=== PATIENT | male | born 1955 | race Caucasian/White ===

== ENCOUNTER 2022-07-31 16:30 | Inpatient (IN) | payer MEDICARE ==
[~2022-07-31] VITALS: Ht 172.7 cm; Wt 72.6 kg
--- NOTE | 2022-07-31 16:52 | NUR ---
[email or web address], medical screening exam in progress
[2022-07-31] MEDS ORDERED: ACETAMINOPHEN ES 500 MG TABLET PO ONE (17:00)
[2022-07-31] MEDS ORDERED: ASPIRIN 81 MG TAB.CHEW PO ONE (17:00)
[2022-07-31] MEDS ORDERED: ASPIRIN 81 MG TAB.CHEW ONE (17:03)
[2022-07-31] MEDS ORDERED: ACETAMINOPHEN 325 MG TABLET ONE (17:03)
[2022-07-31 17:06] LABS: HEMATOCRIT 45.2 % (36.7-47.1); MEAN CORPUSCULAR HEMOGLOBIN 27.4 uug (23.8-33.4); MEAN CORPUSCULAR VOLUME 82.6 fL (73.0-96.2); PLATELET COUNT (AUTO) 269 K/uL (152-348)
[2022-07-31 17:10] LABS: CARBON DIOXIDE 26 mmol/L (21-32); CHLORIDE 106 mmol/L (98-107); CREATININE 1.2 mg/dL (0.6-1.3); GLUCOSE 104 mg/dL (74-106); POTASSIUM 3.7 mmol/L (3.5-5.1); UREA NITROGEN, BLOOD 23 mg/dL (7-18)
[2022-07-31 17:23] LABS: ALANINE AMINOTRANSFERASE 26 U/L (16-63); ALKALINE PHOSPHATASE 110 U/L (50-136); ASPARTATE AMINOTRANSFERASE 15 U/L (15-37); BILIRUBIN,DIRECT < 0.1 mg/dL (0.0-0.2); BILIRUBIN,TOTAL 0.4 mg/dL (0.2-1.0); TOTAL PROTEIN, SERUM 6.8 g/dL (6.4-8.2)
[2022-07-31 17:24] LABS: THYROID STIMULATING HORMONE 0.159 mIU/mL (0.358-3.740)
[2022-07-31] MEDS ORDERED: METOPROLOL TARTRATE 50 MG TABLET PO SCH (18:00)
[2022-07-31] MEDS ORDERED: METOPROLOL TARTRATE 50 MG TABLET ONE (18:04)
--- NOTE | 2022-07-31 18:16 | NUR ---
"Plan to admit" per Dr Zee. ER registration/admitting staff Blake notified.
--- NOTE | 2022-07-31 18:29 | NUR ---
NPO except meds with sips of water for now per Dr Zee. Patient notified.
[2022-07-31] MEDS ORDERED: REMEDY ESSENTIAL ZINC PASTE 113 GM TP PRN (18:30)
[2022-07-31] MEDS ORDERED: MORPHINE SULFATE 2 MG/1 ML DISP.SYRIN IV PRN (18:30)
[2022-07-31] MEDS ORDERED: ONDANSETRON 4 MG/2 ML VIAL IV PRN (18:30)
[2022-07-31] MEDS ORDERED: MAGNESIUM HYDROXIDE 30 ML LIQUID UDC PO PRN (18:30)
[2022-07-31] MEDS ORDERED: ACETAMINOPHEN 325 MG TABLET PO PRN (18:30)
[2022-07-31] MEDS ORDERED: NITROGLYCERIN 0.4 MG/TAB BOTTLE SL PRN (18:30)
--- NOTE | 2022-07-31 18:41 | NUR ---
Pending telemetry bed & nurse at this time, 3rd floor air tester notified.
[2022-07-31] MEDS ORDERED: IV NS 1000 ML 1,000 ML IV ONE (18:45)
--- NOTE | 2022-07-31 18:57 | NUR ---
Pt will be assigned to 318 per [facility]. Charge nurse made aware.
--- NOTE | 2022-07-31 19:31 | NUR ---
Patient awake and oriented x 4, no voiced c/o pain or discomfor at this time. Patient updated on plan of care, aware will be admitted to the hospital, going to room # 318, COVID swab done at this time awaiting results. Report called to accepting nurse Ran. Patient remains stable for transport.
[2022-07-31] MEDS ORDERED: ATORVASTATIN 40 MG TABLET PO SCH ×2 (21:00)
[2022-07-31] MEDS ORDERED: ENOXAPARIN SODIUM 40 MG/0.4 ML DISP.SYRIN SQ SCH (21:00)
--- NOTE | 2022-07-31 22:00 | NUR ---
Received Pt from SHAZIA Matthews. Pt arrived in unit on 2134. Pt is A&Ox4 and is cooperative. Pt is Sinus Shailesh on tele. Pt on Rm Air. Pt not experiencing any chest pain. No other S&S of distress. Skin is intact. Safety measures in place. Will continue to monitor.
[2022-07-31 22:30] VITALS: BP 115/48
--- NOTE | 2022-07-31 23:00 | NUR ---
Informed Dr. Guzman of Pt usually taking lithium carbonate 300mg PO HS instead of prescribed 450mg PO B.I.D. Thomas stated it was ok to change lithium order to 300mg PO HS. Safety measures in place. Will continue to monitor.
[2022-07-31] MEDS ORDERED: LITHIUM CARBONATE 300 MG TABLET.SA PO SCH (23:30)
[2022-08-01] MEDS: LITHIUM CARBONATE 300 MG CAPSULE PO SCH ×2 (00:22→00:25)
[2022-08-01] MEDS ORDERED: LITHIUM CARBONATE CR 450 MG TABLET.SA PO SCH ×2 (00:30→09:00)
[2022-08-01] MEDS ORDERED: LITHIUM CARBONATE 300 MG CAPSULE PO SCH (00:45)
[2022-08-01 04:00] VITALS: BP 114/54
--- NOTE | 2022-08-01 05:15 | NUR ---
Pt has CT Angio ordered by Dr. Guzman yesterday at 1817 STAT. Pt has yet to get the CT angio. Asked Radiology Department at approximately 0230. Roland stated that it "will occur in the morning." Contacted cotton seed culler physician Asim Ruth @[phone] on 08/01. Dr. Ruth replied at [phone] to contact radiology again. Will follow up on recommendation. Safety measures in place. Will continue to monitor.
--- NOTE | 2022-08-01 05:21 | NUR ---
Will endorse CT Angio situation to Day shift Nurse.
[2022-08-01 05:39] LABS: HEMATOCRIT 42.3 % (36.7-47.1); MEAN CORPUSCULAR HEMOGLOBIN 27.7 uug (23.8-33.4); MEAN CORPUSCULAR VOLUME 83.3 fL (73.0-96.2); PLATELET COUNT (AUTO) 229 K/uL (152-348)
[2022-08-01 05:55] LABS: ALANINE AMINOTRANSFERASE 23 U/L (16-63); ALKALINE PHOSPHATASE 93 U/L (50-136); ASPARTATE AMINOTRANSFERASE 15 U/L (15-37); BILIRUBIN,TOTAL 0.2 mg/dL (0.2-1.0); CHOLESTEROL 190 mg/dL (<200); HDL CHOLESTEROL 44 mg/dL (40-60); TOTAL PROTEIN, SERUM 5.6 g/dL (6.4-8.2); TRIGLYCERIDES 363 MG/DL (30-150)
[2022-08-01 05:56] LABS: CREATININE 1.1 mg/dL (0.6-1.3); MAGNESIUM 2.1 mg/dL (1.8-2.4); PHOSPHOROUS 2.8 mg/dL (2.5-4.9); POTASSIUM 3.8 mmol/L (3.5-5.1)
[2022-08-01 06:07] LABS: BILIRUBIN,DIRECT < 0.1 mg/dL (0.0-0.2)
[2022-08-01 06:12] LABS: THYROID STIMULATING HORMONE 0.097 mIU/mL (0.358-3.740)
[2022-08-01] MEDS: THYROID 60 MG TABLET PO SCH ×2 (06:22→09:44)
--- NOTE | 2022-08-01 06:22 | NUR ---
Did not administer [place] Thyroid. Pt admitted today. Med not available. Will endorse this to day shift nurse and wait for pharmacy to deliver med. Safety measures in place. Will continue to monitor.
--- NOTE | 2022-08-01 06:59 | NUR ---
End of Shift Note: Pt is A&Ox4 and is cooperative. Pt is Sinus Shailesh on tele. Pt on Rm Air. Pt not experiencing any chest pain. No other S&S of distress. Skin is intact. Safety measures in place. Received Urine sample and sent it to lab. Will continue to monitor.
--- NOTE | 2022-08-01 07:21 | NUR ---
Endorsed to day shift nurse about Thyroid Medication, and CT Angio of Heart.
[2022-08-01 08:00] VITALS: BP 120/49
[2022-08-01] MEDS ORDERED: PROPRANOLOL LA 60 MG CAP.SA.24H PO SCH (09:00)
[2022-08-01] MEDS ORDERED: ASPIRIN 81 MG TAB.CHEW PO SCH (09:00)
[2022-08-01] MEDS: buPROPion 75 MG TABLET PO SCH ×3 (09:00→10:10)
[2022-08-01] MEDS ORDERED: LITHIUM CARBONATE 300 MG TABLET.SA PO SCH (09:00)
[2022-08-01] MEDS ORDERED: PANTOPRAZOLE SODIUM 40 MG VIAL IV SCH (09:00)
[2022-08-01] MEDS ORDERED: LAMOTRIGINE 100 MG TABLET PO SCH (09:00)
[2022-08-01] MEDS ORDERED: METOPROLOL TARTRATE 25 MG TABLET PO SCH (09:00)
[2022-08-01] MEDS ORDERED: METOPROLOL TARTRATE 50 MG TABLET PO SCH (09:00)
[2022-08-01 10:51] LABS: *BILIRUBIN,URIN NEGATIVE (NEGATIVE); *BLOOD, URINE NEGATIVE (NEGATIVE); *CLARITY,URINE CLEAR (CLEAR); *COLOR,URINE YELLOW (YELLOW); *KETONES,URINE NEGATIVE (NEGATIVE); *UROBILINOGEN,URINE 0.2 E.U./dl (NORMAL); LEUKOCYTE ESTERASE ,URINE NEGATIVE (NEGATIVE); NITRITE, URINE NEGATIVE (NEGATIVE); PH,URINE 7.5 (5.0-8.0); UGLUCOSE NEGATIVE (NEGATIVE)
[2022-08-01 11:08] LABS: *AMPHETAMINE, URINE NEGATIVE (NEGATIVE); *CANNABINOID, URINE NEGATIVE (NEGATIVE); *COCCAINE, URINE NEGATIVE (NEGATIVE); *PHENCYCLIDINE SCREEN,URINE NEGATIVE (NEGATIVE)
[2022-08-01 11:51] VITALS: BP 125/52
[2022-08-01 11:59] VITALS: BP 113/60
--- NOTE | 2022-08-01 12:30 | NUR ---
pt comeback from [facility]. pt reported he was given nitroglycerin by the end of procedure due to mild chest pain.
--- NOTE | 2022-08-01 16:00 | NUR ---
pt was medically cleared for discharge. cta heart show no significant coronary artery disease per md.
[2022-08-01 16:12] VITALS: BP 101/55
[2022-08-01] MEDS ORDERED: METO25TA6 PO (16:52)
[2022-08-01] MEDS ORDERED: ATOR40TA PO (16:52)
[2022-08-01] MEDS ORDERED: THYR60TA2 PO (16:52)
[2022-08-01] MEDS ORDERED: ASPI81TA31 PO (16:52)
--- NOTE | 2022-08-01 18:02 | NUR ---
pt is discharge. alert and orineted to his own ability. exit care provided. pt will go home. asked pt if someone can pick him up, pt state and insist that he will drive himself home. pt denies any chest pain, dizziness, nausea and vomiting. all belongings accounted for. php website developer accompany pt to the parking structure. pt is ambulatory with a normal gait. iv access remove. discharge papers was given to pt.
[2022-08-01] MEDS ORDERED: SIMVASTATIN 40 MG TABLET PO SCH ×2 (21:00)
[2022-08-01] MEDS ORDERED: ATORVASTATIN 40 MG TABLET PO SCH (21:00)
== END 2022-08-01 17:55 | disposition home or self-care (01) | DRG 206 ==
LOC: ER 16:30 → TELE3 21:15
PROVIDERS: ADMIT Nurse Practitioner Acute Care; ATTEND Nurse Practitioner Acute Care
DX: M94.0 Chondrocostal junction syndrome [Tietze] (principal); E86.0 Dehydration; E03.9 Hypothyroidism, unspecified; E78.1 Pure hyperglyceridemia; F32.A Depression, unspecified; G47.33 Obstructive sleep apnea (adult) (pediatric); I10 Essential (primary) hypertension; Z79.82 Long term (current) use of aspirin; K21.9 Gastro-esophageal reflux disease without esophagitis; Z20.822 Contact with and (suspected) exposure to COVID-19
CPT/HCPCS: 36415; 70030-TC; 71045; 83735; 83970; 84100; 84443; 84481; 84484; 85025; 85730; 93005; 93307; A4663; C9113; G0378; J1650; J7040; J8499

== ENCOUNTER 2023-07-24 12:17 | Emergency (ER) | payer MEDICARE ==
[~2023-07-24] VITALS: Ht 172.7 cm; Wt 74.8 kg
[~2023-07-24 12:17] MED LIST: ASPI81TA31 PO; ATOR40TA PO; METO25TA6 PO; THYR60TA2 PO
[2023-07-24] MEDS ORDERED: ARMO250T2 PO ×2 (12:41)
[2023-07-24] MEDS ORDERED: RISP0.5T65 PO (12:41)
[2023-07-24] MEDS ORDERED: AMOX1TAB16 PO (12:41)
[2023-07-24] MEDS ORDERED: THYR90TA PO (12:41)
[2023-07-24] MEDS ORDERED: LITH150C PO (12:41)
[2023-07-24] MEDS ORDERED: ANAS1TAB50 PO (12:41)
[2023-07-24] MEDS ORDERED: OMEP20TA5 PO (12:41)
[2023-07-24] MEDS ORDERED: LAMO100T17 PO (12:41)
[2023-07-24 13:19] LABS: BASOPHILS # (AUTO) 0.3 K/UL (0.0-0.2); BASOPHILS % (AUTO) 2.8 % (0.0-2.0); EOSINOPHILS % (AUTO) 0.4 % (0.0-7.0); HEMATOCRIT 46.3 % (36.7-47.1); HEMOGLOBIN 15.5 g/dL (12.5-16.3); LYMPHOCYTES # (AUTO) 1.5 K/uL (0.8-4.8); LYMPHOCYTES % (AUTO) 14.4 % (20.5-51.5); MEAN CORPUSCULAR HGB CONC 34 g/dL (32.5-36.3); MEAN CORPUSCULAR VOLUME 83.7 fL (73.0-96.2); MONOCYTES # (AUTO) 0.6 K/uL (0.1-1.30); MONOCYTES % (AUTO) 5.2 % (0.0-11.0); NEUTROPHILS # (AUTO) 8.2 K/uL (1.8-8.9); NEUTROPHILS % (AUTO) 77.2 % (38.5-71.5); PLATELET COUNT (AUTO) 208 K/uL (152-348); RED BLOOD CELL COUNT(AUTO) 5.53 MIL/uL (4.06-5.63); RED CELL DISTRIBUTION WIDTH 13.7 % (12.1-16.2); WHITE BLOOD COUNT (AUTO) 10.6 K/uL (3.6-10.2)
[2023-07-24 13:21] LABS: DIFFERENTIAL COMMENT 1
[2023-07-24 13:41] LABS: CALCIUM 9.5 mg/dL (8.5-10.1); CARBON DIOXIDE 28 mmol/L (21-32); CHLORIDE 107 mmol/L (98-107); CREATININE 1.2 mg/dL (0.6-1.3); GLUCOSE 103 mg/dL (74-106); POTASSIUM 4.3 mmol/L (3.5-5.1); SODIUM SERUM 141 mmol/L (136-145); UREA NITROGEN, BLOOD 22 mg/dL (7-18)
[2023-07-24 13:54] LABS: ALANINE AMINOTRANSFERASE 34 U/L (16-63); ALBUMIN 3.6 g/dL (3.4-5.0); ALKALINE PHOSPHATASE 104 U/L (50-136); ASPARTATE AMINOTRANSFERASE 15 U/L (15-37); BILIRUBIN,DIRECT 0.1 mg/dL (0.0-0.2); BILIRUBIN,TOTAL 1.2 mg/dL (0.2-1.0); NT-PRO BNP 50 pg/mL (0-125); TOTAL PROTEIN, SERUM 6.5 g/dL (6.4-8.2)
[2023-07-24 20:12] VITALS: BP 134/56; TEMP 98.3; O2SAT 100
== END 2023-07-24 20:14 | disposition home or self-care (01) ==
LOC: ER 12:21
DX: R07.89 Other chest pain (principal); I25.10 Atherosclerotic heart disease of native coronary artery without angina pectoris; R03.0 Elevated blood-pressure reading, without diagnosis of hypertension; T46.7X5A Adverse effect of peripheral vasodilators, initial encounter; F32.A Depression, unspecified; K21.9 Gastro-esophageal reflux disease without esophagitis; E03.9 Hypothyroidism, unspecified; Z79.82 Long term (current) use of aspirin; Z79.899 Other long term (current) drug therapy; Y92.89 Other specified places as the place of occurrence of the external cause
CPT/HCPCS: 36415; 71045; 84484; 85025; 85730; 93005; A4606; A4663